=== PATIENT | male | born 1970 | race Caucasian/White ===

== ENCOUNTER 2017-12-11 17:16 | Emergency (ER) | payer OTHER ==
[~2017-12-11] VITALS: Ht 172.7 cm; Wt 111.2 kg
[2017-12-11] MEDS ORDERED: FLEXERIL10 MG PO (18:02)
[2017-12-11] MEDS ORDERED: PERCOCET 5/31 TABLET PO (18:02)
[2017-12-11 18:44] VITALS: BP 144/92
== END 2017-12-11 18:45 | disposition home or self-care (01) ==
LOC: EME 17:16 → EXP 17:16
DX: S40.011A Contusion of right shoulder, initial encounter (principal); W01.0XXA Fall on same level from slipping, tripping and stumbling without subsequent striking against object, initial encounter; F17.200 Nicotine dependence, unspecified, uncomplicated
CPT/HCPCS: 73030; 99281; 99284